=== PATIENT | female | born 1985 | race Two or more races ===

== ENCOUNTER → 2018-02-18 | Outpatient (CLI) | payer OTHER ==
[~2018-02-18] VITALS: Ht 152.4 cm; Wt 94.3 kg
[~2018-02-18] MED LIST: CLARITIN-D 241 EACH
== END | disposition home or self-care (01) ==
LOC: PPHC 09:39
DX: J03.80 Acute tonsillitis due to other specified organisms (principal)

== ENCOUNTER 2019-06-03 22:35 | Emergency (ER) | payer OTHER ==
[~2019-06-03] VITALS: Ht 165.1 cm; Wt 95.3 kg
[2019-06-03] MEDS ORDERED: PROTONIX40 M1 (22:55)
[2019-06-03] MEDS ORDERED: PROZAC40 MG (22:55)
[2019-06-03] MEDS ORDERED: ZYRTEC10 M3 (22:56)
== END 2019-06-04 | disposition home or self-care (01) ==
LOC: ER 22:35
DX: M79.644 Pain in right finger(s) (principal)

== ENCOUNTER 2021-04-25 20:55 | Emergency (ER) | payer OTHER ==
[~2021-04-25] VITALS: Ht 162.6 cm; Wt 108.9 kg
[~2021-04-25 20:55] MED LIST changes: +PROTONIX40 M1; +PROZAC40 MG; +ZYRTEC10 M3
[2021-04-25] MEDS ORDERED: MILLIPRED5 MG (21:18)
== END 2021-04-25 23:12 | disposition home or self-care (01) ==
LOC: ER 20:55
DX: R00.2 Palpitations (principal)

== ENCOUNTER 2021-10-21 22:47 | Emergency (ER) | payer OTHER ==
[~2021-10-21] VITALS: Ht 165.1 cm; Wt 108.9 kg
[~2021-10-21 22:47] MED LIST changes: +MILLIPRED5 MG
== END 2021-10-22 00:34 | disposition home or self-care (01) ==
LOC: ER 22:47
DX: S60.411A Abrasion of left index finger, initial encounter (principal); W26.8XXA Contact with other sharp object(s), not elsewhere classified, initial encounter; Y93.89 Activity, other specified; Y92.89 Other specified places as the place of occurrence of the external cause; Y99.8 Other external cause status

== ENCOUNTER 2022-09-07 09:37 | Outpatient (CLI) | payer OTHER | END 2022-09-07 09:45 | disposition home or self-care (01) | LOC: RX STUDY 09:37 | PROVIDERS: ATTEND Obstetrics & Gynecology Reproductive Endocrinology | DX: N70.11 Chronic salpingitis (principal) ==

== ENCOUNTER 2025-04-02 05:36 | Inpatient (IN) | payer OTHER ==
[~2025-04-02] VITALS: Ht 167.6 cm; Wt 117.9 kg
--- NOTE | 2025-04-02 05:50 | NUR ---
SE RECIBE PTE ALERTA Y ORIENTADA LA CUAL REFIERE VENIR POR DOLOR ABOMIAL EN CUADRANTE INFERIOR CLAYTON DESDE MARITA. SE MIDEN S/V A PTE Y SE UBICA.
[2025-04-02] MEDS ORDERED: CIPROFLOXACIN IN 5 % DEXTROSE 400 MG/200 ML PIGGYBAG IV STA (06:48)
[2025-04-02] MEDS ORDERED: METRONIDAZOLE/SODIUM CHLORIDE 500 MG/100 ML PIGGYBACK IV STA (06:51)
[2025-04-02] MEDS ORDERED: PROMETHAZINE HCL 50 MG/ML AMPUL IM STA (06:53)
[2025-04-02] MEDS ORDERED: MORPHINE SULFATE 4 MG/ML VIAL IV STA (06:53)
[2025-04-02] MEDS ORDERED: 0.9 % SODIUM CHLORIDE 1,000 ML IV ONE (07:00)
[2025-04-02 07:40] LABS: HEMATOCRIT 37.9 % (36.0-45.00); HEMOGLOBIN 12.9 g/dL (12.0-15.00); MEAN CELL VOLUME 83.8 fL (80.00-100.00); MEAN CORPUSCULAR HEMOGLOBIN 28.4 pg (27.00-32.0); MEAN CORPUSCULAR HGB CONC 33.9 g/dl (32.0-36.0); PLATELET COUNT 356 K/uL (150-450); RED BLOOD COUNT 4.52 M/uL (4.00-6.00); RED CELL DISTRIBUTION WIDTH 13.5 % (11.5-14.5)
--- NOTE | 2025-04-02 07:58 | NUR ---
SE ORIENTA A PTE SOBRE TX MEDICO QUIEN REFIERE ENTENDER Y ACEPTAR, SE [place] [facility] ORDEN MEDICA BAJO MEDIDAS ASEPTICAS, SE APLICA IV MAS SE ADMINISTRAN MEDICAMENTOS [place] ORDEN MEDICA MAS SE NOTIFICA A SECRETARIA DE TURNO SOBRE ESTUDIOS.
--- NOTE | 2025-04-02 08:04 | NUR ---
SE ORIENTA A PTE SOBRE TRATAMIENTO MEDICO QUIEN REFIERE ENTENDER Y ACEPTAR, SE [place] [facility] ORDEN MEDICA BAJO MEDIDAS ASEPTICAS, SE APLICA IV MAS SE ADMINISTRA MEDICAMENTOS [place] ORDEN MEDICA, SE NOTIFICA A SECRETARIA DE TURNO SOBRE ESTUDIO.
[2025-04-02 08:12] LABS: INR 1.29; PARTIAL THROMBOPLASTIN TIME 29.6 SECONDS (22.0-34.0); PROTHROMBIN TIME 13.8 SECONDS (9.0-11.5)
[2025-04-02 08:33] LABS: ALBUMIN 3.7 gm/dL (3.4-5.0); BILIRUBIN TOTAL 1.83 mg/dL (0.3-1.2); CALCIUM 9.3 mg/dL (8.5-10.1); CREATININE SERUM 0.85 mg/dL (0.55-1.02); GFR 74.46; GLOBULINA 4.3 G/DL (2.4-3.5); POTASSIUM 3.95 mEq/L (3.5-5.1)
[2025-04-02] MEDS ORDERED: FAMOtidine 10 MG/ML (4ML VIAL) IV ONE (09:00)
[2025-04-02] MEDS ORDERED: HYOSCYAMINE SULFATE 0.125 MG TAB.SUBL SL ONE (09:00)
[2025-04-02] MEDS ORDERED: CEFTRIAXONE SODIUM 1,000 MG VIAL IV ONE (10:30)
[2025-04-02 11:14] LABS: PH,URINE 6.5 (5.0-8.0); URINE APPEARANCE Clear; URINE BILIRRUBIN Negative (NEGATIVE); URINE BLOOD Moderate; URINE COLOR Yellow; URINE GLUCOSE Negative (NEGATIVE); URINE KETONE Negative (NEGATIVE); URINE LEUKOCYTE Moderate; URINE NITRATE Negative; URINE PROTEIN Negative (NEGATIVE); URINE UROBILINOGEN 0.2 E.U./dl
[2025-04-02] MEDS ORDERED: METHYLPREDNISOLONE SOD SUCC 40 MG VIAL IV ONE (11:15)
[2025-04-02] MEDS ORDERED: DIPHENHYDRAMINE HCL 50 MG/ML VIAL 1ML IV ONE (11:15)
[2025-04-02 11:19] LABS: URINE BACTERIA 1969.2 uL (0.0-1933); URINE EPITHELIAL CELLS 61.1 uL (0.0-38.8); URINE RBC 73.7 uL (0.0-20.8); URINE WBC 93.4 uL (0.0-23.2)
[2025-04-02 11:41] LABS: URINE CAST 0.29 uL (0.0-1.40)
[2025-04-02] MEDS ORDERED: PIPERACILLIN/TAZOBACTAM SODIUM 3.375 GM VIAL IV ONE (13:45)
--- NOTE | 2025-04-02 14:07 | NUR ---
SE ORINETA PACIENTE A ESTAR NPO Y ESTA REFIERE ENTENDER
[2025-04-02] MEDS ORDERED: FAMOTIDINE/PF 20 MG in 0.9 % SODIUM CHLORIDE 8 ML IV PUSH SCH (16:53)
[2025-04-02] MEDS ORDERED: ONDANSETRON HCL 4 MG in 0.9 % SODIUM CHLORIDE 50 ML IV PRN (17:00)
[2025-04-02] MEDS ORDERED: MIDODRINE HCL 5 MG TABLET PO SCH (17:00)
[2025-04-02] MEDS ORDERED: 0.9 % SODIUM CHLORIDE 1,000 ML IV SCH (17:00)
[2025-04-02] MEDS ORDERED: MORPHINE SULFATE 4 MG/ML CARTRIDGE IV PRN (17:00)
[2025-04-02] MEDS ORDERED: PIPERACILLIN/TAZOBACTAM SODIUM 3.375 GM in DEXTROSE 5 % IN WATER 100 ML IV SCH (18:00)
[2025-04-03] MEDS ORDERED: KETOROLAC TROMETHAMINE 15 MG VIAL IV ONE (00:15)
[2025-04-03 02:14] LABS: COVID-19 AG NEGATIVE (NEGATIVE)
[2025-04-03 03:47] VITALS: BP 110/72; O2SAT 96
[2025-04-03] MEDS ORDERED: MIDODRINE HCL 5 MG TABLET PO SCH (09:00)
[2025-04-03] MEDS ORDERED: PROPRANOLOL HCL 20 MG TABLET PO SCH (09:00)
[2025-04-03] MEDS ORDERED: ENOXAPARIN SODIUM 40 MG/0.4 ML SYRINGE SUBCUTANEO SCH (09:00)
[2025-04-03 15:35] VITALS: BP 133/77; O2SAT 100
[2025-04-04 02:30] VITALS: BP 94/58; O2SAT 99
[2025-04-04 09:11] VITALS: BP 109/61; O2SAT 100
[2025-04-04] MEDS ORDERED: MIDODRINE HCL 5 MG TABLET PO SCH (13:00)
[2025-04-04 17:53] VITALS: BP 119/71; O2SAT 99
[2025-04-05 01:53] VITALS: BP 134/61
[2025-04-05 11:28] VITALS: BP 116/77; O2SAT 96
[2025-04-05 12:57] LABS: HEMATOCRIT 34.6 % (36.0-45.00); HEMOGLOBIN 11.8 g/dL (12.0-15.00); MEAN CELL VOLUME 84.2 fL (80.00-100.00); MEAN CORPUSCULAR HEMOGLOBIN 28.6 pg (27.00-32.0); PLATELET COUNT 385 K/uL (150-450); RED BLOOD COUNT 4.11 M/uL (4.00-6.00); RED CELL DISTRIBUTION WIDTH 13.6 % (11.5-14.5)
[2025-04-05 13:09] LABS: ALBUMIN 3.4 gm/dL (3.4-5.0); BILIRUBIN TOTAL 1.01 mg/dL (0.3-1.2); CALCIUM 8.9 mg/dL (8.5-10.1); CREATININE SERUM 0.79 mg/dL (0.55-1.02); GFR 81.02; GLOBULINA 3.9 G/DL (2.4-3.5); POTASSIUM 4.43 mEq/L (3.5-5.1); TOTAL PROTEIN 7.3 gm/dL (6.4-8.2)
[2025-04-05 17:58] VITALS: BP 115/72; O2SAT 100
[2025-04-06 01:08] VITALS: BP 110/63; O2SAT 100
[2025-04-06 09:24] VITALS: BP 130/80; O2SAT 100
== END 2025-04-06 12:59 | disposition home or self-care (01) | DRG 392 ==
LOC: ER 05:37 → MEDI 17:08 → SEC-K 17:08 → MEDI 18:44
PROVIDERS: General Practice; ADMIT Internal Medicine; ATTEND Internal Medicine
PROC: BW21YZZ Computerized Tomography (CT Scan) of Abdomen and Pelvis using Other Contrast (ICD-10-PCS; principal; 2025-04-02)
DX: K57.20 Diverticulitis of large intestine with perforation and abscess without bleeding (principal); N39.0 Urinary tract infection, site not specified; R65.10 Systemic inflammatory response syndrome (SIRS) of non-infectious origin without acute organ dysfunction